=== PATIENT | female | born 1965 | race Asian ===

== ENCOUNTER 2019-02-15 12:26 | Emergency (ER) | payer MEDICARE ==
[~2019-02-15] VITALS: Ht 154.9 cm; Wt 78.7 kg
[~2019-02-15 12:26] MED LIST: CEPH-443 PO; CLIN300C10 PO; IBUP-1542 PO; LOSA50TA14 PO; SACC250C PO; SULF1TAB31 PO; TRAM50TA2 PO
[2019-02-15 12:33] VITALS: Ht 154.9 cm; Wt 78.7 kg
[2019-02-15] MEDS ORDERED: KETOROLAC 30 MG INJ IM STA (13:13)
[2019-02-15 15:01] VITALS: BP 130/76; PULSE 76; RESP 18
== END 2019-02-15 15:02 | disposition home or self-care (01) ==
LOC: FTE 12:26
DX: L03.316 Cellulitis of umbilicus (principal); I10 Essential (primary) hypertension
CPT/HCPCS: 76536; 81025; 96372; 99285; J1885